=== PATIENT | female | born 1960 | race Caucasian/White ===

== ENCOUNTER 2018-12-21 23:08 | Emergency (ER) | payer OTHER ==
[~2018-12-21] VITALS: Ht 154.9 cm; Wt 98.2 kg
[~2018-12-21 23:08] MED LIST: ASPI-1071 PO; CHLO50TA PO; LISI10TA4 PO; MECL-111 PO; METO-467 PO; ONDA4TAB12 PO; PHE25R PR; PROM25TA14 PO
[2018-12-22 00:20] LABS: BASOPHILS # (AUTO) 0.1 X10'3 (0-0.2); BASOPHILS % (AUTO) 0.7 % (0-1); EOSINOPHILS # (AUTO) 0.7 X10'3 (0-0.9); HEMATOCRIT 35.6 % (35.0-45.0); LYMPHOCYTES # (AUTO) 2.9 X10'3 (1.1-4.8); LYMPHOCYTES % (AUTO) 30.5 % (21-51); MEAN CORPUSCULAR HEMOGLOBIN 29.8 PG (27.0-31.0); MEAN CORPUSCULAR HGB CONC 33.8 g/dL (33.0-36.5); MEAN CORPUSCULAR VOLUME 88.2 FL (78-98); MEAN PLATELET VOLUME 8.4 FL (7.4-10.4); MONOCYTES # (AUTO) 0.8 X10'3 (0-0.9); MONOCYTES % (AUTO) 8.6 % (2-12); NEUTROPHILS % (AUTO) 53.2 % (42-75); PLATELET COUNT 219 X10'3 (140-440); RED BLOOD COUNT 4.03 X10'6 (4.20-5.60); WHITE BLOOD COUNT 9.4 X10'3 (4.5-11.0)
[2018-12-22 00:33] LABS: ALANINE AMINOTRANSFERASE 21 U/L (12-78); ALBUMIN 3.1 G/DL (3.4-5.0); ALBUMIN/GLOBULIN RATIO 0.8 (1.1-1.5); ALKALINE PHOSPHATASE 67 IU/L (46-116); ANION GAP 4 (8-16); ASPARTATE AMINO TRANSFERASE 10 U/L (10-37); BILIRUBIN,TOTAL 0.2 MG/DL (0.1-1.0); BLOOD UREA NITROGEN 16 MG/DL (7-18); BUN/CREATININE RATIO 20.8 (6.6-38.0); CALCIUM 8.8 MG/DL (8.5-10.1); CHLORIDE 107 MMOL/L (99-107); CREATININE 0.77 MG/DL (0.40-0.90); GLUCOSE 119 MG/DL (70-104); POTASSIUM 3.1 MMOL/L (3.5-5.1); SODIUM 142 MMOL/L (135-145); TOTAL CARBON DIOXIDE 30.7 MMOL/L (24-32); eGFR 77 ML/MIN
[2018-12-22 00:39] LABS: PARTIAL THROMBOPLASTIN TIME 27 SECONDS (22-32)
--- NOTE | 2018-12-22 01:14 | NUR ---
CURRENT BP 202/110, HR 70 AND NSR. REPORTS MILD CONTINUOUS SUBSTERNAL CP THAT RADIATES TO HER MID BACK..
[2018-12-22] MEDS ORDERED: potassium Cl 20 mEq SR tablet PO ONE (03:55)
--- NOTE | 2018-12-22 04:12 | NUR ---
DR LANDON AT BEDSIDE WITH PT
[2018-12-22 04:37] LABS: LIPASE 135 U/L (73-393)
[2018-12-22 04:50] VITALS: BP 180/72
== END 2018-12-22 06:01 | disposition home or self-care (01) ==
LOC: ER 23:09
DX: I25.10 Atherosclerotic heart disease of native coronary artery without angina pectoris (principal); K76.0 Fatty (change of) liver, not elsewhere classified; K44.9 Diaphragmatic hernia without obstruction or gangrene; K42.9 Umbilical hernia without obstruction or gangrene; I10 Essential (primary) hypertension; I25.2 Old myocardial infarction; J45.909 Unspecified asthma, uncomplicated; Z90.49 Acquired absence of other specified parts of digestive tract; Z98.890 Other specified postprocedural states; Z79.82 Long term (current) use of aspirin; Z79.899 Other long term (current) drug therapy
CPT/HCPCS: 36415; 71045; 74176; 80053; 83690; 84484; 85025; 85610; 85730; 93005; 99284

== ENCOUNTER 2019-08-21 05:25 | Day surgery (SDC) | payer BC ==
[~2019-08-21] VITALS: Ht 154.9 cm; Wt 104.3 kg
[2019-08-21] VITALS (10 sets, daily range): BP systolic 115–143; BP diastolic 61–83
[~2019-08-21 05:25] MED LIST changes: -ASPI-1071 PO; -CHLO50TA PO; +CHOL100025 PO; -LISI10TA4 PO; +LISI40TA4 PO; -MECL-111 PO; +METO-395 PO; -METO-467 PO; -ONDA4TAB12 PO; -PHE25R PR; -PROM25TA14 PO; +VITA1CAP16 PO; +ringers solution, lacted 1,000 ML IV SCH
[2019-08-21] MEDS ORDERED: famotidine 20mg tablet PO ONE (05:30)
[2019-08-21] MEDS ORDERED: cefazolin/dext.iso 2gm/100ml 100 ML IV ONE (05:30)
[2019-08-21] MEDS ORDERED: DOCUMENT DATE & TIME OF BETA-BLOCKER PO ONE (05:30)
[2019-08-21] MEDS ORDERED: LIDOcaine 1% (10mg/ml) 2ml vial ONE (06:06)
[2019-08-21] MEDS ORDERED: BUPIVAcaine/PF 2.5 mg/ml (0.25%) 30ml vial ONE (06:54)
[2019-08-21] MEDS ORDERED: ceFAZolin 1000mg inj ONE (06:54)
[2019-08-21 07:10] LABS: BASOPHILS % (AUTO) 0.6 % (0-1); EOSINOPHILS # (AUTO) 0.5 X10'3 (0-0.9); EOSINOPHILS % (AUTO) 6.8 % (0-6); LYMPHOCYTES # (AUTO) 1.7 X10'3 (1.1-4.8); LYMPHOCYTES % (AUTO) 25.8 % (21-51); MEAN CORPUSCULAR HEMOGLOBIN 28.7 PG (27.0-31.0); MEAN PLATELET VOLUME 8.4 FL (7.4-10.4); MONOCYTES # (AUTO) 0.6 X10'3 (0-0.9); MONOCYTES % (AUTO) 9.4 % (2-12); NEUTROPHILS # (AUTO) 3.8 X10'3 (1.8-7.7); NEUTROPHILS % (AUTO) 57.4 % (42-75); PRE OP HEMATOCRIT 37.1 % (35.0-45.0); PRE OP HEMOGLOBIN 12.2 g/dL (12.0-16.0); PRE OP PLATELET COUNT 230 X10'3 (140-440); RED BLOOD COUNT 4.27 X10'6 (4.20-5.60); RED CELL DISTRIBUTION WIDTH 14.3 % (11.5-14.5)
[2019-08-21 07:20] LABS: ALBUMIN/GLOBULIN RATIO 0.8 (1.1-1.5); ALKALINE PHOSPHATASE 69 IU/L (46-116); BLOOD UREA NITROGEN 18 MG/DL (7-18); BUN/CREATININE RATIO 21.4 (6.6-38.0); CALCIUM 8.6 MG/DL (8.5-10.1); CHLORIDE 106 MMOL/L (99-107); CREATININE 0.84 MG/DL (0.40-0.90); PRE OP ALT 22 U/L (30-65); PRE OP ANION GAP 6 (8-16); PRE OP AST 14 U/L (10-37); PRE OP BILIRUB, TOTAL 0.5 MG/DL (0.0-1.0); PRE OP GLUCOSE 117 MG/DL (70-104); PRE OP POTASSIUM 3.6 MMOL/L (3.4-5.1); PRE OP SODIUM 141 MMOL/L (135-145); TOTAL CARBON DIOXIDE 29.2 MMOL/L (24-32); TOTAL PROTEIN 6.9 G/DL (6.4-8.2); eGFR 70 ML/MIN
[2019-08-21] MEDS ORDERED: fentaNYL/PF 50MCG/1 ML 2ML syringe ONE (08:31)
[2019-08-21] MEDS ORDERED: LIDOcaine 2% (20mg/ml) 5ml vial ONE (08:32)
[2019-08-21] MEDS ORDERED: midazolam 2 mg/2 ml injection ONE (08:32)
[2019-08-21] MEDS ORDERED: rocuronium 10mg/ml inj IV ONE (08:50)
[2019-08-21] MEDS ORDERED: sevoflurane 250ml liquid IH ONE (08:50)
[2019-08-21] MEDS ORDERED: propofol inj 20 ML IV ONE (09:08)
[2019-08-21] MEDS ORDERED: ondansetron/PF 4mg/2ml inj ONE (09:08)
[2019-08-21] MEDS ORDERED: dexamethasone sod phosphate 4mg/ml inj. ONE (09:08)
[2019-08-21] MEDS ORDERED: acetaminophen 1,000mg/100ml IV 100 ML IV ONE (09:15)
[2019-08-21] MEDS ORDERED: ringers solution, lacted 1,000 ML IV SCH (09:26)
[2019-08-21] MEDS ORDERED: morphine 2 MG/ML inj. syringe IV PRN (09:30)
[2019-08-21] MEDS ORDERED: morphine 4 MG/ML inj SYRINge IV PRN (09:30)
[2019-08-21] MEDS ORDERED: meperidine/PF 25mg/ml syringe IV PRN ×3 (09:30)
[2019-08-21] MEDS ORDERED: proCHLORperazine 10 MG/2 ml inj IV PRN (09:30)
[2019-08-21] MEDS ORDERED: ondansetron/PF 4mg/2ml inj IV PRN (09:30)
[2019-08-21] MEDS ORDERED: ketorolac trometh. 30mg/ml inj. ONE (10:09)
--- NOTE | 2019-08-21 10:30 | NUR ---
Received from OR via BED , accompanied by Anesthesiologist DR ziegler and report given by Anesthesiolgist. PATIENT WAKING UP, DENIES PAIN, V/S WNL, NEUROVASCULAR CHECKS INTACT, 20G PIV rUE, SCD ON, BANDAIDS TO LAP SIGHTS OF ABDOMEN CDI.
[2019-08-21] MEDS ORDERED: HYDROcodone/acetaminophen 10/325mg tab PO ONE (11:10)
--- NOTE | 2019-08-21 12:10 | NUR ---
PATIENT A&OX4, STATES PAINFUL TO MOVE BUT OK WHEN AT REST , V/S WNL, NEUROVASCULAR CHECKS INTACT, 20G PIV rUE D/C, SCD OFF, BANDAIDS TO LAP SIGHTS OF ABDOMEN CDI. I HAVE REVIEWED D/C INSTRUCTIONS WITH PATIENT AND FAMILY HAVE VERBALIZED UNDERSTANDING.PATIENT WAS D/C HOME WITH ALL BELONGINGS AND FAMILY GAVE TRANSPORT HOME. [facility] SCRIPT WITH [facility] [place] PATIENT AWARE
== END 2019-08-21 12:10 | disposition home or self-care (01) ==
LOC: PAS 05:25
PROVIDERS: ATTEND Surgery
DX: K42.0 Umbilical hernia with obstruction, without gangrene (principal); I10 Essential (primary) hypertension; E78.00 Pure hypercholesterolemia, unspecified; E55.9 Vitamin D deficiency, unspecified; D50.9 Iron deficiency anemia, unspecified; G47.30 Sleep apnea, unspecified; J45.909 Unspecified asthma, uncomplicated; Z79.899 Other long term (current) drug therapy; Z83.3 Family history of diabetes mellitus; Z82.49 Family history of ischemic heart disease and other diseases of the circulatory system; Z11.59 Encounter for screening for other viral diseases
CPT/HCPCS: 36415; 49652; 80053; 85025; 87635; 93005; C1758; C1781; J0131; J0690; J1100; J1885; J2001; J2175; J2250; J2405; J2704; J3010; J3490; J7120; A4215; A4618; A7000

== ENCOUNTER 2021-03-10 20:57 | Emergency (ER) | payer SELFPAY ==
[~2021-03-10] VITALS: Ht 154.9 cm; Wt 97.7 kg
[~2021-03-10 20:57] MED LIST changes: +LISI40TA13 PO; -LISI40TA4 PO; -ringers solution, lacted 1,000 ML IV SCH
[2021-03-10] MEDS ORDERED: CASIRIVIMAB/IMDEVIMAB inject. 10 ML in normal saline 100ml IV soln 100 ML IV ONE (21:50)
[2021-03-10 23:13] LABS: D-DIMER 0.31 MG/L FEU (0-0.50)
[2021-03-10 23:58] VITALS: BP 157/72
== END 2021-03-11 00:01 | disposition home or self-care (01) ==
LOC: ER 20:58
DX: U07.1 COVID-19 (principal); R07.89 Other chest pain; R51.9 Headache, unspecified; I10 Essential (primary) hypertension; I25.2 Old myocardial infarction; J45.909 Unspecified asthma, uncomplicated; Z90.49 Acquired absence of other specified parts of digestive tract; Z98.890 Other specified postprocedural states; Z79.899 Other long term (current) drug therapy
CPT/HCPCS: 36415; 71045; 84484; 85379; 93005; 99285; M0243; Q0244

== ENCOUNTER 2022-01-07 14:49 | Emergency (ER) | payer OTHER ==
[~2022-01-07] VITALS: Ht 154.9 cm; Wt 100.0 kg
--- NOTE | 2022-01-07 15:07 | NUR ---
PT CLEARED FROM C-SPINE PER EDMD.
[2022-01-07] MEDS ORDERED: metoclopramide 5 mg/ml inj IV ONE (17:15)
[2022-01-07] MEDS ORDERED: ONDA8TAB13 PO (17:23)
[2022-01-07] MEDS ORDERED: METO-292 PO (17:24)
[2022-01-07] MEDS ORDERED: ONDA4TAB12 PO (17:26)
--- NOTE | 2022-01-07 17:54 | NUR ---
continued c/o nausea with vomiting when patient sat up to get ready fo dc. Dr. Light notified orders given and initiated
[2022-01-07] MEDS ORDERED: dexamethasone 4mg/ml inj IV ONE (17:55)
[2022-01-07 18:48] VITALS: BP 144/79
== END 2022-01-07 18:54 | disposition home or self-care (01) ==
LOC: ER 14:50
DX: S06.0X0A Concussion without loss of consciousness, initial encounter (principal); I10 Essential (primary) hypertension; J45.909 Unspecified asthma, uncomplicated; Z90.49 Acquired absence of other specified parts of digestive tract; W01.0XXA Fall on same level from slipping, tripping and stumbling without subsequent striking against object, initial encounter; Y93.89 Activity, other specified; Y92.89 Other specified places as the place of occurrence of the external cause; Y99.8 Other external cause status
CPT/HCPCS: 70450; 72125; 96374; 96375; 99285; J1100; J2765

== ENCOUNTER 2023-05-17 07:35 | Inpatient (IN) | payer OTHER ==
[~2023-05-17] VITALS: Ht 154.9 cm; Wt 108.6 kg
[~2023-05-17 07:35] MED LIST changes: +METO-292 PO; +ONDA4TAB12 PO; +ONDA8TAB13 PO
[2023-05-17 08:40] LABS: BILIRUBIN,URINE NEGATIVE (Neg); CLARITY,URINE CLOUDY (Clear); COLOR,URINE YELLOW (Yellow); GLUCOSE, URINE NEGATIVE (Neg); KETONES,URINE NEGATIVE (Neg); LEUKOCYTE ESTERASE ,URINE LARGE (Neg); NITRITES, URINE NEGATIVE (Neg); OCCULT BLOOD,URINE LARGE (Neg); PH,URINE 6.5 (4.8-8.0); PROTEIN,URINE 100 mg/dl (Neg); UROBILINOGEN,URINE 0.2 E.U/dL (0.2-1.0)
[2023-05-17 09:08] LABS: UA COLLECTION TYPE CLN CATCH MIDSTREAM
[2023-05-17 09:11] LABS: RBC,URINE 20-50 /HPF (0-2); SQUAMOUS EPITHELIAL CELL,UR MANY /LPF (FEW); WBC,URINE 50-100 /HPF (0-4)
[2023-05-17 09:12] LABS: BACTERIA,URINE 3+ /HPF (Neg)
[2023-05-17] MEDS ORDERED: ondansetron 4mg rapidly disintigrating tab PO ONE (09:25)
[2023-05-17] MEDS ORDERED: ketorolac trometh. 30mg/ml inj. IM ONE (09:25)
[2023-05-17 10:02] LABS: MEAN PLATELET VOLUME 8.2 FL (7.4-10.4)
[2023-05-17 10:07] LABS: HEMATOCRIT 36.8 % (35.0-45.0); HEMOGLOBIN 12.2 g/dl (12.0-16.0); MEAN CORPUSCULAR HEMOGLOBIN 28.9 PG (27.0-31.0); MEAN CORPUSCULAR VOLUME 87.7 FL (78-98); PLATELET COUNT 181 X10'3 (140-440); RED CELL DISTRIBUTION WIDTH 16.6 % (11.5-14.5); WHITE BLOOD COUNT 4.4 X10'3 (4.5-11.0)
[2023-05-17] MEDS ORDERED: CefTRIAXone 2gm/D5W 50ml BAG 50 ML IV ONE (10:45)
[2023-05-17] MEDS ORDERED: normal saline 1000ml 1,000 ML IVB ONE (10:45)
[2023-05-17 11:05] LABS: TOTAL CELLS COUNTED 100
[2023-05-17 11:07] LABS: ANISOCYTOSIS 1+; PLATELET ESTIMATE NORMAL
[2023-05-17 11:08] LABS: TOXIC VACUOLATION 1+
[2023-05-17 11:18] LABS: ALANINE AMINOTRANSFERASE 28 U/L (12-78); ALBUMIN 2.9 G/DL (3.4-5.0); ALBUMIN/GLOBULIN RATIO 0.8 (1.1-1.5); ALKALINE PHOSPHATASE 97 IU/L (46-116); ANION GAP 11 (8-16); BILIRUBIN,TOTAL 0.8 MG/DL (0.1-1.0); BLOOD UREA NITROGEN 26 MG/DL (7-18); BUN/CREATININE RATIO 22.2 (10.0-20.0); CALCIUM 8.7 MG/DL (8.5-10.1); CHLORIDE 105 MMOL/L (99-107); CREATININE 1.17 MG/DL (0.40-0.90); GLUCOSE 135 MG/DL (70-104); LIPASE 27 U/L (16-77); POTASSIUM 3.3 MMOL/L (3.5-5.1); SODIUM 139 MMOL/L (135-145); TOTAL CARBON DIOXIDE 23.3 MMOL/L (24-32); TOTAL PROTEIN 6.7 G/DL (6.4-8.2); eCRCL 38 ML/MIN; eGFR 47 ML/MIN
[2023-05-17 11:28] LABS: ASPARTATE AMINO TRANSFERASE 23 U/L (10-37)
[2023-05-17] MEDS: normal saline 1000ml 1,000 ML IV SCH (14:20)
[2023-05-17] MEDS ORDERED: docusate sod 100mg capsule PO PRN (14:20)
[2023-05-17] MEDS ORDERED: mag hydrox/Alum hydrox/simeth 30ml oral suspension PO PRN (14:20)
[2023-05-17] MEDS ORDERED: acetaminophen 325mg tablet PO PRN (14:20)
[2023-05-17] MEDS ORDERED: magnesium hydroxide 30ml (MOM) UD suspension PO PRN (14:20)
[2023-05-17] MEDS ORDERED: magnesium 4gm in 100ml NS 100 ML IV PRN (14:20)
[2023-05-17] MEDS ORDERED: potassium Cl 20 mEq SR tablet PO PRN (14:20)
[2023-05-17] MEDS ORDERED: magnesium Cl slow-release 64mg tablet PO PRN (14:20)
[2023-05-17] MEDS ORDERED: potassium Cl 40MEQ/1/2NS 520ml 520 ML IV PRN (14:20)
[2023-05-17] MEDS ORDERED: magnesium 2GM in 50ml NS 50 ML IV PRN (14:20)
[2023-05-17] MEDS ORDERED: morphine 2 MG/ML inj. syringe IV PRN ×2 (14:20)
[2023-05-17] MEDS: K and/or MAG REPLACEMENT MC SCH (20:00)
[2023-05-17] MEDS: potassium Cl 20 mEq SR tablet PO PRN (20:17)
[2023-05-18] VITALS (7 sets, daily range): BP systolic 102–131; BP diastolic 40–71; PULSE 105–116; RESP 14–17; TEMP 97.8–99.1; O2SAT 90–98
[2023-05-18] MEDS: normal saline 1000ml 1,000 ML IV SCH ×3 (00:20→19:10)
[2023-05-18] MEDS: ondansetron/PF 4mg/2ml inj IV PRN ×3 (03:29→19:56)
[2023-05-18] MEDS ORDERED: SPIR50TA5 PO (03:35)
[2023-05-18] MEDS ORDERED: ALBU2.5V10 (03:35)
[2023-05-18] MEDS ORDERED: MONT-40 PO (03:35)
[2023-05-18] MEDS: HYDROcodone/acetaminophen 5mg/325mg tablet PO PRN (03:54)
[2023-05-18 06:21] LABS: BASOPHILS % (AUTO) 0.2 % (0-1); EOSINOPHILS # (AUTO) 0.3 X10'3 (0-0.9); HEMATOCRIT 31.8 % (35.0-45.0); HEMOGLOBIN 10.5 g/dl (12.0-16.0); LYMPHOCYTES # (AUTO) 0.5 X10'3 (1.1-4.8); MEAN CORPUSCULAR HEMOGLOBIN 29.2 PG (27.0-31.0); MEAN CORPUSCULAR HGB CONC 33.1 g/dL (33.0-36.5); MEAN CORPUSCULAR VOLUME 88.2 FL (78-98); MEAN PLATELET VOLUME 8.5 FL (7.4-10.4); MONOCYTES % (AUTO) 5.7 % (2-12); NEUTROPHILS # (AUTO) 15.5 X10'3 (1.8-7.7); NEUTROPHILS % (AUTO) 89.1 % (42-75); PLATELET COUNT 136 X10'3 (140-440); RED CELL DISTRIBUTION WIDTH 16.9 % (11.5-14.5); WHITE BLOOD COUNT 17.4 X10'3 (4.5-11.0)
[2023-05-18 06:41] LABS: ALANINE AMINOTRANSFERASE 91 U/L (12-78); ALBUMIN 2.3 G/DL (3.4-5.0); ALBUMIN/GLOBULIN RATIO 0.6 (1.1-1.5); ALKALINE PHOSPHATASE 80 IU/L (46-116); ANION GAP 10 (8-16); ASPARTATE AMINO TRANSFERASE 46 U/L (10-37); BILIRUBIN,TOTAL 0.6 MG/DL (0.1-1.0); BLOOD UREA NITROGEN 30 MG/DL (7-18); BUN/CREATININE RATIO 24.2 (10.0-20.0); CALCIUM 7.9 MG/DL (8.5-10.1); CHLORIDE 108 MMOL/L (99-107); CREATININE 1.24 MG/DL (0.40-0.90); GLUCOSE 107 MG/DL (70-104); MAGNESIUM 1.4 MG/DL (1.5-2.4); PHOSPHORUS 3.8 MG/DL (2.3-4.5); POTASSIUM 3.6 MMOL/L (3.5-5.1); SODIUM 143 MMOL/L (135-145); TOTAL CARBON DIOXIDE 25.3 MMOL/L (24-32); TOTAL PROTEIN 6.1 G/DL (6.4-8.2); eCRCL 36 ML/MIN; eGFR 44 ML/MIN
[2023-05-18] MEDS: K and/or MAG REPLACEMENT MC SCH ×2 (08:00→19:42)
[2023-05-18] MEDS ORDERED: CefTRIAXone/D5W-Rocephin 1gm 50 ML IV SCH (08:00)
[2023-05-18] MEDS: HYDROcodone/acetaminophen 10/325mg tab PO PRN ×3 (09:05→19:56)
[2023-05-18] MEDS: piperacillin/tazo 3.375gm/50ml 50 ML IV SCH ×2 (13:16→18:34)
[2023-05-18 19:32] LABS: BILIRUBIN,URINE NEGATIVE (Neg); CLARITY,URINE SLIGHTLY CLOUDY (Clear); COLOR,URINE YELLOW (Yellow); GLUCOSE, URINE NEGATIVE (Neg); KETONES,URINE 15 mg/dl (Neg); LEUKOCYTE ESTERASE ,URINE NEGATIVE (Neg); NITRITES, URINE NEGATIVE (Neg); OCCULT BLOOD,URINE TRACE-INTACT (Neg); PROTEIN,URINE 30 mg/dl (Neg); UROBILINOGEN,URINE 0.2 E.U/dL (0.2-1.0)
[2023-05-18] MEDS: montelukast 10mg tablet PO SCH (19:51)
[2023-05-18 19:52] LABS: UA COLLECTION TYPE NON-SPECIFIED
[2023-05-18] MEDS: heparin, porcine 5000 units/ml vial SQ SCH (19:52)
[2023-05-18 20:02] LABS: SQUAMOUS EPITHELIAL CELL,UR MODERATE /LPF (FEW)
[2023-05-18 20:03] LABS: BACTERIA,URINE FEW /HPF (Neg)
[2023-05-18 20:04] LABS: MUCUS STRANDS FEW /LPF (Neg)
[2023-05-18 20:05] LABS: TRANSITIONAL EPI CELLS,URINE FEW /HPF; WBC CLUMPS,URINE FEW /HPF (NEGATIVE)
[2023-05-18 22:16] LABS: PRO BRAIN NATRIURETIC PEPTIDE 1542 PG/ML (0-125)
[2023-05-19] MEDS: piperacillin/tazo 3.375gm/50ml 50 ML IV SCH ×3 (00:39→18:21)
[2023-05-19] MEDS: ondansetron/PF 4mg/2ml inj IV PRN (01:21)
[2023-05-19] MEDS: normal saline 1000ml 1,000 ML IV SCH ×3 (01:28→23:30)
[2023-05-19 07:06] LABS: BASOPHILS # (AUTO) 0.1 X10'3 (0-0.2); EOSINOPHILS # (AUTO) 0.1 X10'3 (0-0.9); LYMPHOCYTES # (AUTO) 1.2 X10'3 (1.1-4.8); WHITE BLOOD COUNT 12.6 X10'3 (4.5-11.0)
[2023-05-19 07:09] LABS: BASOPHILS % (AUTO) 1.1 % (0-1); EOSINOPHILS % (AUTO) 1.2 % (0-6); HEMATOCRIT 32.6 % (35.0-45.0); HEMOGLOBIN 10.8 g/dl (12.0-16.0); LYMPHOCYTES % (AUTO) 9.7 % (21-51); MEAN CORPUSCULAR HEMOGLOBIN 29.4 PG (27.0-31.0); MONOCYTES % (AUTO) 7.6 % (2-12); NEUTROPHILS # (AUTO) 10.2 X10'3 (1.8-7.7); NEUTROPHILS % (AUTO) 80.4 % (42-75); PLATELET COUNT 137 X10'3 (140-440); RED BLOOD COUNT 3.66 X10'6 (4.20-5.60); RED CELL DISTRIBUTION WIDTH 16.6 % (11.5-14.5)
[2023-05-19 07:16] VITALS: BP 120/57; PULSE 104; RESP 16; TEMP 99.3; O2SAT 90
[2023-05-19 07:39] LABS: ALANINE AMINOTRANSFERASE 96 U/L (12-78); ALBUMIN 2.3 G/DL (3.4-5.0); ALBUMIN/GLOBULIN RATIO 0.6 (1.1-1.5); ALKALINE PHOSPHATASE 96 IU/L (46-116); ANION GAP 7 (8-16); ASPARTATE AMINO TRANSFERASE 41 U/L (10-37); BILIRUBIN,TOTAL 0.4 MG/DL (0.1-1.0); BLOOD UREA NITROGEN 24 MG/DL (7-18); CALCIUM 8.1 MG/DL (8.5-10.1); CHLORIDE 108 MMOL/L (99-107); GLUCOSE 120 MG/DL (70-104); MAGNESIUM 1.8 MG/DL (1.5-2.4); PHOSPHORUS 2.9 MG/DL (2.3-4.5); POTASSIUM 3.4 MMOL/L (3.5-5.1); SODIUM 143 MMOL/L (135-145); TOTAL CARBON DIOXIDE 27.6 MMOL/L (24-32); TOTAL PROTEIN 6.3 G/DL (6.4-8.2); eCRCL 44 ML/MIN; eGFR 56 ML/MIN
[2023-05-19 08:00] VITALS: RESP 16; O2SAT 93
[2023-05-19] MEDS ORDERED: cholecalciferol (vitamin D3) 1,000 unit (25mcg) tablet PO SCH (08:00)
[2023-05-19] MEDS: spironolactone 50 MG tablet PO SCH (08:00)
[2023-05-19 08:44] LABS: ANISOCYTOSIS 1+; PLATELET ESTIMATE DECREASED; TOTAL CELLS COUNTED 100
[2023-05-19 08:45] LABS: POIKILOCYTOSIS 1+; POLYCHROMASIA FEW; TOXIC VACUOLATION 1+
[2023-05-19] MEDS: pantoprazole 40 MG vial IV SCH (08:48)
[2023-05-19] MEDS: heparin, porcine 5000 units/ml vial SQ SCH ×2 (08:49→20:57)
[2023-05-19] MEDS: metoprolol succinate 25mg (24-HOUR) SR. Tablet PO SCH (08:50)
[2023-05-19] MEDS: lisinopril 20mg tablet PO SCH (08:50)
[2023-05-19 10:00] VITALS: BP 130/58; PULSE 99; RESP 16; TEMP 96.9; O2SAT 93
[2023-05-19 18:00] VITALS: BP 146/73; PULSE 90; RESP 16; TEMP 98.3; O2SAT 94
[2023-05-19] MEDS: K and/or MAG REPLACEMENT MC SCH (20:00)
[2023-05-19] MEDS: montelukast 10mg tablet PO SCH (20:55)
[2023-05-19] MEDS: potassium Cl 20 mEq SR tablet PO PRN (21:03)
[2023-05-19] MEDS: HYDROcodone/acetaminophen 10/325mg tab PO PRN (21:03)
[2023-05-19 22:00] VITALS: BP 149/86; PULSE 88; RESP 18; TEMP 97.9; O2SAT 96
[2023-05-20] MEDS: piperacillin/tazo 3.375gm/50ml 50 ML IV SCH ×2 (00:46→08:42)
[2023-05-20 05:35] LABS: BASOPHILS # (AUTO) 0.1 X10'3 (0-0.2); BASOPHILS % (AUTO) 0.6 % (0-1); EOSINOPHILS # (AUTO) 0.2 X10'3 (0-0.9); EOSINOPHILS % (AUTO) 2.5 % (0-6); HEMATOCRIT 33.6 % (35.0-45.0); HEMOGLOBIN 11.2 g/dl (12.0-16.0); LYMPHOCYTES # (AUTO) 1.4 X10'3 (1.1-4.8); LYMPHOCYTES % (AUTO) 15.9 % (21-51); MEAN CORPUSCULAR HEMOGLOBIN 29.2 PG (27.0-31.0); MEAN CORPUSCULAR HGB CONC 33.3 g/dL (33.0-36.5); MEAN CORPUSCULAR VOLUME 87.8 FL (78-98); MEAN PLATELET VOLUME 8.4 FL (7.4-10.4); MONOCYTES # (AUTO) 0.8 X10'3 (0-0.9); MONOCYTES % (AUTO) 9.2 % (2-12); NEUTROPHILS # (AUTO) 6.4 X10'3 (1.8-7.7); NEUTROPHILS % (AUTO) 71.8 % (42-75); PLATELET COUNT 153 X10'3 (140-440); RED BLOOD COUNT 3.82 X10'6 (4.20-5.60); RED CELL DISTRIBUTION WIDTH 16.4 % (11.5-14.5); WHITE BLOOD COUNT 8.9 X10'3 (4.5-11.0)
[2023-05-20] MEDS: normal saline 1000ml 1,000 ML IV SCH (05:44)
[2023-05-20 06:03] LABS: ALANINE AMINOTRANSFERASE 92 U/L (12-78); ALBUMIN 2.3 G/DL (3.4-5.0); ALBUMIN/GLOBULIN RATIO 0.5 (1.1-1.5); ALKALINE PHOSPHATASE 99 IU/L (46-116); ANION GAP 7 (8-16); ASPARTATE AMINO TRANSFERASE 36 U/L (10-37); BILIRUBIN,TOTAL 0.4 MG/DL (0.1-1.0); BLOOD UREA NITROGEN 24 MG/DL (7-18); CALCIUM 8.4 MG/DL (8.5-10.1); CHLORIDE 108 MMOL/L (99-107); CREATININE 0.75 MG/DL (0.40-0.90); GLUCOSE 109 MG/DL (70-104); MAGNESIUM 2.1 MG/DL (1.5-2.4); PHOSPHORUS 2.5 MG/DL (2.3-4.5); POTASSIUM 3.7 MMOL/L (3.5-5.1); SODIUM 143 MMOL/L (135-145); TOTAL CARBON DIOXIDE 28.3 MMOL/L (24-32); TOTAL PROTEIN 6.6 G/DL (6.4-8.2); eCRCL 59 ML/MIN; eGFR 78 ML/MIN
[2023-05-20 06:37] VITALS: BP 132/67; PULSE 77; RESP 16; TEMP 97.5; O2SAT 93
[2023-05-20 08:40] VITALS: RESP 16; O2SAT 94
[2023-05-20] MEDS: pantoprazole 40 MG vial IV SCH (08:40)
[2023-05-20 08:41] VITALS: BP_SYST 132; PULSE 77
[2023-05-20] MEDS: lisinopril 20mg tablet PO SCH (08:41)
[2023-05-20] MEDS: spironolactone 50 MG tablet PO SCH (08:41)
[2023-05-20] MEDS: metoprolol succinate 25mg (24-HOUR) SR. Tablet PO SCH (08:41)
[2023-05-20] MEDS: heparin, porcine 5000 units/ml vial SQ SCH (08:42)
[2023-05-20] MEDS ORDERED: LEVO-65 PO (11:53)
[2023-05-20 12:16] VITALS: RESP 16
[2023-05-20] MEDS: HYDROcodone/acetaminophen 5mg/325mg tablet PO PRN (12:16)
== END 2023-05-20 16:15 | disposition home or self-care (01) | DRG 872 ==
LOC: ER 07:35 → ED HOLD 14:28 → ORTHO 4S 05-18 03:25
PROVIDERS: ADMIT Family Medicine; ATTEND Internal Medicine
DX: A41.9 Sepsis, unspecified organism (principal); N13.6 Pyonephrosis; N17.9 Acute kidney failure, unspecified; Z68.42 Body mass index [BMI] 45.0-49.9, adult; D64.9 Anemia, unspecified; D69.59 Other secondary thrombocytopenia; E87.6 Hypokalemia; R93.89 Abnormal findings on diagnostic imaging of other specified body structures; N85.8 Other specified noninflammatory disorders of uterus; E03.9 Hypothyroidism, unspecified; E66.9 Obesity, unspecified; K57.30 Diverticulosis of large intestine without perforation or abscess without bleeding; I10 Essential (primary) hypertension; J45.909 Unspecified asthma, uncomplicated; T38.1X6A Underdosing of thyroid hormones and substitutes, initial encounter; Y92.89 Other specified places as the place of occurrence of the external cause; Z90.49 Acquired absence of other specified parts of digestive tract; Z82.3 Family history of stroke; I25.2 Old myocardial infarction; Z82.49 Family history of ischemic heart disease and other diseases of the circulatory system; Z83.3 Family history of diabetes mellitus; Z87.440 Personal history of urinary (tract) infections; Z79.899 Other long term (current) drug therapy
CPT/HCPCS: 36415; 74176; 76856; 80053; 81001; 83605; 83690; 83735; 83880; 84100; 84145; 84443; 85007; 85025; 85651; 87040; 87077; 87081; 87088; 87186; 93976; 97116; 97161; 97530; 99285; A4615; A6253; A6449; C9113; G0378; J0696; J1644; J1885; J2270; J2405; J2543; J7030